=== PATIENT | female | born 1995 | race Caucasian/White ===

== ENCOUNTER 2020-02-10 07:29 | Emergency (ER) | payer OTHER ==
[~2020-02-10] VITALS: Ht 167.6 cm; Wt 81.6 kg
[2020-02-10] MEDS ORDERED: FAMOTIDINE 20 MG TAB PO ONE ×2 (07:31→07:49)
[2020-02-10] MEDS ORDERED: EPINEPHRINE HCL 1:1000 1ML 1 MG/ML AMP INJ STA (07:31)
[2020-02-10] MEDS ORDERED: PREDNISONE 20 MG TAB PO ONE ×2 (07:31→07:49)
[2020-02-10] MEDS ORDERED: DIPHENHYDRAMINE HCL 25 MG CAP PO ONE (07:31)
--- NOTE | 2020-02-10 07:33 | Emergency Department Note ---
History of Present Illnes History of Present Illness Chief Complaint: General Medicine Complaints History of Present Illness This is a 25 year old female abrupt onset of facial swelling and wheezing at 0700 Historian: Patient Arrival Mode: Car Onset (how long ago): minute(s) Radiation: Reports non-radiation Severity: moderate Onset quality: sudden Duration (how long): hour(s) Timing of current episode: constant Progression: partially resolved Chronicity: new Context: Denies recent illness, Denies recent surgery, Denies recent immobilization, Denies recent travel, Denies trauma/injury, Denies new medications, Denies hx of DVT/PE, Denies non-compliance w/ medications, Denies other Associated symptoms: Reports shortness of breath Treatments prior to arrival: none Past Medical/Family History Physician Review I have reviewed the patient's past medical and family history. Any updates have been documented here. Past Medical History Recent Fever: No Clinical Suspicion of Infectio: No New/Unexplained Change in Ment: No Past Medical History: None Past Surgical History: None Social History Smoking Cessation: Never Smoker Alcohol Use: None Any Illegal Drug Use: No Review of Systems Review of Systems Constitutional: Reports no symptoms EENTM: Reports no symptoms Cardiovascular: Reports no symptoms Respiratory: Reports wheezing Gastrointestinal: Reports no symptoms Genitourinary: Reports no symptoms Musculoskeletal: Reports no symptoms Integumentary: Reports no symptoms Neurological: Reports no symptoms Psychological: Reports no symptoms Endocrine: Reports no symptoms Hematological/Lymphatic: Reports no symptoms Physical Exam Related Data Allergies: Coded Allergies: pollen extracts (Verified Allergy, Severe, 02/10/20) shellfish derived (Verified Allergy, Severe, 02/10/20) Sulfa (Sulfonamide Antibiotics) (Verified Allergy, Unknown, 02/10/20) Uncoded Allergies: Histamines (Allergy, Unknown, 02/10/20) Triage Vital Signs Vital Signs Date Time Temp Pulse Resp B/P (MAP) Pulse Ox O2 Delivery O2 Flow Rate FiO2 02/10/20 07:30 98.9 91 20 121/91 100 Room Air Vital signs reviewed: Yes Physical Exam CONSTITUTIONAL Constitutional: Present well-developed, Present well-nourished HENT HENT: Present normocephalic, Present atraumatic, Present oropharynx clear/moist, Present nose normal HENT L/R: Present left ext ear normal, Present right ext ear normal EYES Eyes: Reports PERRL, Reports conjunctivae normal NECK Neck: Present ROM normal PULMONARY Pulmonary: Present effort normal, Present breath sounds normal CARDIOVASCULAR Cardiovascular: Present regular rhythm, Present heart sounds normal, Present capillary refill normal, Present normal rate GASTROINTESTINAL Abdominal: Present soft, Present nontender, Present bowel sounds normal GENITOURINARY Genitourinary: Present exam deferred SKIN Skin: Present warm, Present dry MUSCULOSKELETAL Musculoskeletal: Present ROM normal NEUROLOGICAL Neurological: Present alert, Present oriented x 3, Present no gross motor or sensory deficits PSYCHOLOGICAL Psychological: Present mood/affect normal, Present judgement normal Assessment & Plan Medical Decision Making MDM Diff Dx : anaphylaxis, allergic reaction Assessment & Plan Final Impression: (1) Anaphylaxis Depart Disposition: HOME, SELF-CARE KAVONKATIE Feb 10, 2020 07:33
[2020-02-10] MEDS ORDERED: DIPHENHYDRAMINE HCL 25 MG CAP ONE (07:52)
[2020-02-10] MEDS ORDERED: PREDNISONE 20 MG TAB ONE (07:53)
[2020-02-10] MEDS ORDERED: FAMOTIDINE 20 MG TAB ONE (07:54)
[2020-02-10 08:37] VITALS: BP 136/98
== END 2020-02-10 08:43 | disposition home or self-care (01) ==
LOC: ER 07:35
DX: T78.2XXA Anaphylactic shock, unspecified, initial encounter (principal); F17.210 Nicotine dependence, cigarettes, uncomplicated
CPT/HCPCS: 99283; J0171; J7512